=== PATIENT | male | born 1990 | race African-American/Black ===

== ENCOUNTER 2020-10-21 17:18 | Emergency (ER) | payer MEDICAID ==
[~2020-10-21] VITALS: Ht 185.4 cm; Wt 145.0 kg
[2020-10-21] MEDS ORDERED: ACETAMINOPHEN WITH CODEINE 300/30MG TABLET PO ONE (18:00)
[2020-10-21] MEDS ORDERED: KETOROLAC 30MG/ML VIAL IM ONE (18:00)
[2020-10-21 19:25] VITALS: BP 160/98
== END 2020-10-21 19:26 | disposition home or self-care (01) ==
LOC: ER 17:18
DX: S93.402A Sprain of unspecified ligament of left ankle, initial encounter (principal); S80.02XA Contusion of left knee, initial encounter; V29.88XA Motorcycle rider (driver) (passenger) injured in other specified transport accidents, initial encounter; Y93.55 Activity, bike riding; Y92.89 Other specified places as the place of occurrence of the external cause; Y99.8 Other external cause status
CPT/HCPCS: 73562; 73590; 73610; 93005; 96372; 99284; J1885

== ENCOUNTER 2020-11-15 16:42 | Emergency (ER) | payer MEDICAID ==
[~2020-11-15] VITALS: Ht 185.4 cm; Wt 140.0 kg
[2020-11-15] MEDS ORDERED: SULFAMETHOXAZOLE/TRIMETHOPRIM 800/160MG TABLET PO ONE (19:30)
[2020-11-15] MEDS ORDERED: CEPHALEXIN 250MG CAPSULE PO ONE (19:30)
[2020-11-15] MEDS ORDERED: CEPH250C2 MT (21:16)
[2020-11-15] MEDS ORDERED: SULF1TAB48 MT (21:16)
[2020-11-15 21:39] VITALS: BP 142/82
== END 2020-11-15 21:25 | disposition home or self-care (01) ==
LOC: ER 16:42
DX: L03.116 Cellulitis of left lower limb (principal); R03.0 Elevated blood-pressure reading, without diagnosis of hypertension; Z87.828 Personal history of other (healed) physical injury and trauma
CPT/HCPCS: 93971; 99284